=== PATIENT | male | born 1995 | race Caucasian/White ===

== ENCOUNTER 2017-02-13 20:34 | Emergency (ER) | payer BC ==
[~2017-02-13] VITALS: Ht 172.7 cm; Wt 75.0 kg
[~2017-02-13 20:34] MED LIST: CLARITIN10 MG PO; FLONASE16 GM NS; METHYLPHENIDATE60 MG PO; VYVANSE40 MG PO; ZOLOFT20 MG/ML PO
[2017-02-13 21:51] VITALS: BP 122/80
== END 2017-02-13 21:51 | disposition home or self-care (01) ==
LOC: EME 20:34
DX: R55 Syncope and collapse (principal)
CPT/HCPCS: 93005; 99281; 99284